=== PATIENT | male | born 1975 | race Caucasian/White ===

== ENCOUNTER 2016-10-26 09:33 | Emergency (ER) | payer MEDICAID, MEDICARE ==
[~2016-10-26] VITALS: Ht 172.7 cm; Wt 93.0 kg
[2016-10-26] MEDS ORDERED: LIDOCAINE/EPI/TETRACAINE TOPICAL GEL 3 ML. TP ONE (10:00)
[2016-10-26] MEDS ORDERED: SMZ/TMP 800/160MG TABLET. PO ONE (10:00)
--- NOTE | 2016-10-26 10:04 | ED.ADGEN ---
Past History Past Medical History: CVA Past Surgical History: Other Alcohol Use: Occasionally Drug Use: Methamphetamine Adult General Chief Complaint Chief Complaint Left elbow infection HPI HPI Patient is a 41-year-old male who presents with cellulitis to his left elbow. Patient reportedly was treated at [facility] approximately 3 weeks ago for a laceration and had sutures placed. Patient did not follow-up to have the sutures removed. There is swelling, redness and bruising surrounding suture site. There is no induration, streaking, or fluctuance. There is no pain on range of motion. Review of Systems Review of Systems ROS as per HPI. Current Medications Current Medications Current Medications Medications (Trade) Dose Ordered Sig/Kristina Start Time Stop Time Status Last Admin Dose Admin Lidocaine/ Epinephrine (Let Topical) 3 ml 1X ONCE 10/26/16 10:00 10/26/16 10:01 10/26/16 09:46 3 ML Trimethoprim/ Sulfamethoxazole (Bactrim Ds) 1 tab 1X ONCE 10/26/16 10:00 10/26/16 10:01 10/26/16 09:46 1 TAB Allergies Allergies Allergies Coded Allergies Type Severity Reaction Last Updated Verified No Known Drug Allergies 01/12/15 No Physical Exam Physical Exam Constitutional: Well developed, well nourished, no acute distress, non-toxic appearance. HENT: Normocephalic, atraumatic, bilateral external ears normal. Extremities: Left elbow, 5 cm patch of swelling erythema over posterior elbow with sutures in place. No induration, streaking or pain to range of motion. Neurologic: Alert and oriented X 3, normal motor function, normal sensory function, no focal deficits noted. Psychologic: Affect normal, judgement, poor. Current Patient Data Vital Signs Vital Signs Date Time Temp Pulse Resp B/P (MAP) Pulse Ox O2 Delivery O2 Flow Rate FiO2 10/26/16 09:53 98.1 89 20 96 EKG EKG [] Radiology/Procedures Radiology/Procedures [] Course & Med Decision Making Course & Med Decision Making Pertinent Labs and Imaging studies reviewed. (See chart for details) [Infected left elbow wound cellulitis without discrete abscess. Sutures removed and antibiotics given. Antibiotics Rx'd from $4 list with arrangements made for patient to pay for abx. PCP referral. Return precautions reviewed. ] Final Impression Final Impression [1. Left elbow cellulitis] Problems: Dragon Disclaimer Dragon Disclaimer This electronic medical record was generated, in whole or in part, using a voice recognition dictation system. ESTELLE ROBERT DO October 26, 2016 10:04
--- NOTE | 2016-10-26 10:57 | RAD ---
Examination: 2 views of the chest history: History of trauma, chest pain Comparison: 12/23/2015 Findings: The cardiomediastinal silhouette grossly appears unremarkable. There is no acute infiltrate or visualized pneumothorax identified. Impression: No acute cardiopulmonary findings.
--- NOTE | 2016-10-26 10:59 | RAD ---
Examination: 3 views of the cervical spine History: History of trauma, neck pain Comparison: None available Findings: The vertebral body heights are maintained. No evidence of listhesis identified. Mild intervertebral disc height loss identified at C5-C6 vertebral levels. Facets are well aligned. No evidence of prevertebral soft tissue swelling identified. The spinolaminar line is maintained. The lateral masses of C1 are aligned with C2 vertebra. The C2 dens appears intact. Impression: 1. Mild degenerative changes cervical spine.
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
[2016-10-26 11:15] VITALS: BP 124/65
== END 2016-10-26 11:49 | disposition home or self-care (01) ==
LOC: ER 09:33
DX: L03.114 Cellulitis of left upper limb (principal); Z86.73 Personal history of transient ischemic attack (TIA), and cerebral infarction without residual deficits; F15.10 Other stimulant abuse, uncomplicated
CPT/HCPCS: 71020; 72040; 72170; 99284-25

== ENCOUNTER 2017-07-21 13:21 | Emergency (ER) | payer MEDICARE ==
[~2017-07-21] VITALS: Ht 172.7 cm; Wt 93.0 kg
[2017-07-21 13:27] VITALS: BP 124/65
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
== END 2017-07-21 14:55 | disposition home or self-care (01) ==
LOC: ER 13:21
DX: T69.8XXA Other specified effects of reduced temperature, initial encounter (principal); F15.10 Other stimulant abuse, uncomplicated; Z59.0 Homelessness; Z86.73 Personal history of transient ischemic attack (TIA), and cerebral infarction without residual deficits
CPT/HCPCS: 99283

== ENCOUNTER 2018-01-10 14:43 | Emergency (ER) | payer MEDICARE ==
[~2018-01-10] VITALS: Ht 180.3 cm; Wt 84.8 kg
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
[2018-01-10 15:12] VITALS: BP 134/53
--- NOTE | 2018-01-10 15:15 | RAD ---
Chest, 2 views, 01/10/2018: HISTORY: Cough, chest pain Comparison is made to a study from 10/26/2016. The heart size is normal. No pulmonary infiltrate is seen. There is no evidence of pleural fluid. A lap band type device is in place related to the proximal aspect of the stomach. IMPRESSION: No acute cardiopulmonary abnormality is detected. Electronically signed by: Anupam Salas MD (01/10/2018 3:11 PM) [facility]
[2018-01-10] MEDS ORDERED: methylPREDNISolone SOD SUCC PF 125 MG/2 ML VIAL. IV ONE (15:20)
[2018-01-10] MEDS ORDERED: IPRATRPIUM/ALBUTEROL 0.5/2.5MG 3 ML NEBU. NEB ONE (15:20)
[2018-01-10] MEDS ORDERED: ASPIRIN 81 MG TAB.CHEW PO ONE (15:20)
[2018-01-10 15:24] LABS: BASO % 1 % (0-3); EOS % 0 % (0-3); HEMOGLOBIN 12.6 g/dL (13.0-17.5); LYMPH # 1.6 x10^3/uL (1.0-4.8); LYMPH % 30 % (24-48); MEAN CORPUSCULAR HEMOGLOBIN 31 pg (25-35); MEAN CORPUSCULAR HGB CONC 34 g/dL (31-37); MEAN CORPUSCULAR VOLUME 90 fL (79-100); MONO # 0.7 x10^3/uL (0.0-1.1); MONO % 13 % (0-9); NEUT # 3.1 x10^3uL (1.8-7.7); NEUT % 56 % (31-73); PLATELET COUNT 226 x10^3/uL (140-400); RED CELL DISTRIBUTION WIDTH 13.5 % (11.5-14.5); WHITE BLOOD COUNT 5.5 x10^3/uL (4.0-11.0)
[2018-01-10 16:05] LABS: ALBUMIN 3.1 g/dL (3.4-5.0); ALBUMIN/GLOBULIN RATIO 0.8 (1.0-1.7); CALCIUM 8.5 mg/dL (8.5-10.1); CREATININE 0.9 mg/dL (0.7-1.3); GFR 91.7; POTASSIUM 3.7 mmol/L (3.5-5.1); TOTAL BILIRUBIN 0.3 mg/dL (0.2-1.0)
[2018-01-10 16:21] LABS: AMPHETAMINE/METHAMPHETAMINE NEG (NEG); BARBITURATES NEG (NEG); BENZODIAZEPINES NEG (NEG); CANNABINOIDS POS (NEG); COCAINE NEG (NEG); METHADONE NEG (NEG); OPIATES NEG (NEG); PHENCYCLIDINE NEG (NEG)
[2018-01-10] MEDS ORDERED: ALBU8.5H8 INH (16:31)
[2018-01-10] MEDS ORDERED: PRED20TA PO (16:31)
[2018-01-10 16:36] LABS: BILIRUBIN,URINE NEG (NEG); CLARITY,URINE HAZY; COLOR,URINE YELLOW; GLUCOSE,URINE NEG (NEG); NITRITE,URINE NEG (NEG); UROBILINOGEN,URINE 1 mg/dL (0.2 mg/dL)
[2018-01-10 16:37] LABS: BACTERIA,URINE 0 /HPF (0-FEW); SQUAMOUS EPITHELIAL CELL,UR FEW /LPF
--- NOTE | 2018-01-11 07:44 | EKG ---
[address] [address] Test Date: 2018-01-10 Test Time: 14:58:02 Pat Name: KIMBERLY WILLAMS Department: Room: Gender: M [employer] Attorney: : 1975 Requested By: SANDY ARGUETA Order Number: [id number] Reading MD: Measurements Intervals Thornton Rate: 88 P: 36 TX: 136 QRS: -33 QRSD: 88 T: 28 QT: 346 QTc: 422 Interpretive Statements SINUS RHYTHM ABNORMAL LEFT AXIS DEVIATION LEFT ANTERIOR FASCICULAR BLOCK ABNORMAL ECG RI6.01 Unconfirmed report No previous ECG available for comparison
== END 2018-01-10 17:00 | disposition home or self-care (01) ==
LOC: ER 14:43
DX: J40 Bronchitis, not specified as acute or chronic (principal); F17.210 Nicotine dependence, cigarettes, uncomplicated; F14.10 Cocaine abuse, uncomplicated; F15.10 Other stimulant abuse, uncomplicated; Z86.73 Personal history of transient ischemic attack (TIA), and cerebral infarction without residual deficits
CPT/HCPCS: 36415; 71046; 80053; 80307; 81001; 82553; 83735; 83880; 84484; 85025; 85610; 93005; 94640; 96374; 99285; J2930; J7620; G0479

== ENCOUNTER 2020-03-31 16:57 | Emergency (ER) | payer MEDICAID, MEDICARE, OTHER ==
[~2020-03-31] VITALS: Ht 180.3 cm; Wt 90.9 kg
[~2020-03-31 16:57] MED LIST: ALBU2.5V8 INH; PRED20TA PO
[2020-03-31 17:15] VITALS: BP 123/92
--- NOTE | 2020-03-31 17:16 | PHYS DOC ---
Past History Past Medical History: Hypertension, Stroke, Other Past Surgical History: No Surgical History Smoking: Cigarettes Alcohol Use: Occasionally Drug Use: Cocaine General Adult EDM: Chief Complaint: INSECT BITE HPI: HPI: Patient is a 44 year old male who presents for evaluation of a large insect bite/abscess to his left upper leg area. Symptoms been rapidly progressing with the past 3 days. There is redness extending below the initial lesion site. He had attempted open the wound at home and then it significantly worsened. Patient has a history of prior skin infections and drug use. He is concerned this may be a spider bite. No active draining at this time. No fevers and c hills Review of Systems: Review of Systems: Constitutional: Denies fever or chills Eyes: Denies change in visual acuity HENT: Denies nasal congestion or sore throat Respiratory: Denies cough or shortness of breath Cardiovascular: Denies chest pain or edema GI: Denies abdominal pain, nausea, vomiting, bloody stools or diarrhea : Denies dysuria Musculoskeletal: Denies back pain or joint pain Integument: Denies rash, large abscess with cellulitis surrounding left upper outer thigh area Neurologic: Denies headache, focal weakness or sensory changes Endocrine: Denies polyuria or polydipsia Lymphatic: Denies swollen glands Psychiatric: Denies depression or anxiety Allergies: Allergies: Allergies Coded Allergies Type Severity Reaction Last Updated Verified No Known Drug Allergies 01/12/15 No Physical Exam: PE: Constitutional: Well developed, well nourished, mild acute distress, non-toxic appearance. [] HENT: Normocephalic, atraumatic, bilateral external ears normal, oropharynx moist, no oral exudates, nose normal. [] Eyes: PERRL, EOMI, conjunctiva normal, no discharge. [] Neck: Normal range of motion, no tenderness, supple, no stridor. [] Cardiovascular:Heart rate regular rhythm slightly tachy, no murmur [] Lungs & Thorax: Bilateral breath sounds clear to auscultation [] Abdomen: Bowel sounds normal, soft, no tenderness, no masses, no pulsatile masses. [] Skin: Warm, dry, no erythema, no rash., 2 cm central abscess with surrounding cellulitis measures approximately 8 cm in diameter [] Back: No tenderness. [] Extremities: tenderness left upper/outer thigh, no cyanosis, ROM intact, no edema. [] Neurologic: Alert and oriented X 3, normal motor function, normal sensory function, no focal deficits noted. [] Psychologic: Affect normal, judgement normal, mood normal. [] EKG: EKG: [] Radiology/Procedures: Radiology/Procedures: [] Heart Score: Risk Factors: Risk Factors: DM, Current or recent (<one month) smoker, HTN, HLP, family history of CAD, obesity. Risk Scores: Score 0 - 3: 2.5% MACE over next 6 weeks - Discharge Home Score 4 - 6: 20.3% MACE over next 6 weeks - Admit for Clinical Observation Score 7 - 10: 72.7% MACE over next 6 weeks - Early Invasive Strategies Course & Med Decision Making: Course & Med Decision Making Pertinent Labs and Imaging studies reviewed. (See chart for details) [] Dragon Disclaimer: Dragon Disclaimer: This electronic medical record was generated, in whole or in part, using a voice recognition dictation system. Departure Departure: Impression: Primary Impression: Left leg cellulitis Additional Impression: Abscess of left leg Disposition: 01 DC HOME SELF CARE/HOMELESS Condition: STABLE Referrals: PCP,NO (PCP) Patient Instructions: Abscess, Care After Additional Instructions: Keep wound clean and dry, take antibiotics as directed. Have your doctor recheck wound of the next 2 days, return if worsen. Replace packing every 2 to 3 days Scripts Doxycycline Hyclate (DOXYCYCLINE HYCLATE) 100 Mg Capsule 1 CAP PO BID for abscess/cellulitis for 7 Days, #14 CAP Prov: MERNA ZEPEDA DO 03/31/20 Clindamycin Hcl (CLINDAMYCIN HCL) 150 Mg Capsule 1 CAP PO QID for abscess/cellulitis for 7 Days, #28 CAP Prov: MERNA ZEPEDA DO 03/31/20 Ibuprofen (IBUPROFEN) 800 Mg Tablet 1 TAB PO TID for pain, #30 TAB Prov: MERNA ZEPEDA DO 03/31/20 Incision and Drainage Incision and Drainage : Site: left upper outer leg Blade Size: 11 I & D Procedure: betadine prep, sterile drapes applied, sterile dressing applied, gauze wick placed Progress about 5 cc of pus obtained, wound probed to break up loculations, half-inch packing gauze placed in wound, wound cleaned with saline under pressure multiple cc, patient given prescription for clindamycin and doxycycline for MRSA coverage MERNA ZEPEDA DO Mar 31, 2020 17:16
[2020-03-31] MEDS ORDERED: IBUP800T19 PO (17:42)
[2020-03-31] MEDS ORDERED: DOXY100C2 PO (17:42)
[2020-03-31] MEDS ORDERED: CLIN150C14 PO (17:42)
[2020-03-31] MEDS ORDERED: LIDOCAINE 2% 20 ML VIAL. IJ ONE (18:00)
[2020-03-31] MEDS ORDERED: CLINDAMYCIN HCL 150 MG CAPSULE PO ONE (18:00)
[2020-03-31] MEDS ORDERED: IBUPROFEN 600 MG TABLET. PO ONE (18:00)
== END 2020-03-31 18:01 | disposition home or self-care (01) ==
LOC: ER 16:57
DX: L02.416 Cutaneous abscess of left lower limb (principal); L03.116 Cellulitis of left lower limb; I10 Essential (primary) hypertension; F17.210 Nicotine dependence, cigarettes, uncomplicated; Z86.73 Personal history of transient ischemic attack (TIA), and cerebral infarction without residual deficits
CPT/HCPCS: 10060; 99283; J2001

== ENCOUNTER 2020-05-10 20:11 | Emergency (ER) | payer MEDICARE ==
[~2020-05-10] VITALS: Ht 180.3 cm; Wt 86.6 kg
[~2020-05-10 20:11] MED LIST changes: +CLIN150C14 PO; +DOXY100C2 PO; +IBUP800T19 PO
[2020-05-10 20:16] VITALS: BP 143/105
[2020-05-10] MEDS ORDERED: MUPIROCIN 2% TOPICAL OINTMENT 22GM TUBE. TP STA (20:57)
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
[2020-05-10] MEDS ORDERED: SMZ/TMP 800/160MG TABLET. PO ONE (21:00)
[2020-05-10] MEDS ORDERED: cefTRIAXone IM 1 GM VIAL IM ONE (21:00)
[2020-05-10] MEDS ORDERED: cefTRIAXone SODIUM 1 GM VIAL ONE (21:09)
[2020-05-10] MEDS ORDERED: SULF1TAB24 PO (21:56)
== END 2020-05-10 22:00 | disposition home or self-care (01) ==
LOC: ER 20:11
DX: L02.811 Cutaneous abscess of head [any part, except face] (principal); R60.0 Localized edema; I10 Essential (primary) hypertension; I25.2 Old myocardial infarction; F17.210 Nicotine dependence, cigarettes, uncomplicated; F14.90 Cocaine use, unspecified, uncomplicated
CPT/HCPCS: 96372; 99283; J0696

== ENCOUNTER 2020-10-28 01:39 | Emergency (ER) | payer MEDICARE ==
[~2020-10-28] VITALS: Ht 180.3 cm; Wt 90.9 kg
[~2020-10-28 01:39] MED LIST changes: -CLIN150C14 PO; +CLIN150C15 PO; +SULF1TAB24 PO
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
[2020-10-28] MEDS ORDERED: CEPH500C PO (02:24)
[2020-10-28] MEDS ORDERED: oxyCODONE/APAP 5/325 1 TAB TABLET PO ONE (03:00)
[2020-10-28] MEDS ORDERED: DIPH,PERTUSS(ACELL),TET VAC/PF 0.5 ML SYRINGE. VAX IM ONE (03:00)
[2020-10-28] MEDS ORDERED: CEPHALEXIN 250 MG CAPSULE PO ONE (03:00)
[2020-10-28 04:30] VITALS: BP 122/88
== END 2020-10-28 03:40 | disposition home or self-care (01) ==
LOC: ER 01:39
DX: L03.116 Cellulitis of left lower limb (principal); L03.115 Cellulitis of right lower limb; I10 Essential (primary) hypertension; F17.210 Nicotine dependence, cigarettes, uncomplicated; Z23 Encounter for immunization; Z59.0 Homelessness
CPT/HCPCS: 90471; 90715; 99283-25

== ENCOUNTER 2021-07-14 23:24 | Emergency (ER) | payer MEDICARE ==
[~2021-07-14] VITALS: Ht 180.3 cm; Wt 90.9 kg
[~2021-07-14 23:24] MED LIST changes: +CEPH500C PO; -CLIN150C15 PO; +CLIN150C16 PO; -DOXY100C2 PO; +DOXY100C3 PO
[2021-07-14 23:36] VITALS: BP 156/105
--- NOTE | 2021-07-14 23:41 | PHYS DOC ---
Past History Past Medical History: Arthritis, Hypertension, Stroke, Other Additional Past Medical Histor: drug abuse Past Medical History Rt. hand / arm, Rt. Leg / foot- contracture sequela of prior CVA Past Surgical History: No Surgical History Smoking: Cigarettes Alcohol Use: Occasionally Drug Use: Cocaine General Adult EDM: Chief Complaint: MULTIPLE COMPLAINTS HPI: HPI: ".. [place] and [place] not get to the halfway in time.. I was in [place] earlier this week.. on a failure to appear on IVET...kaur.. ". " I had been doing some meth today..,." Patient is a 46 year old male who presents with above hx of complaints of chronic right hand pain and right foot pain . Patient's primary concern is that he missed that halfway closing time and " it too fucking cold out their".. Pt. has long history of polysubstance abuse. Patient states he has been off drugs while he was in sn[place] for his violation of IVET. Patient has chronic right hand and right leg contractions and spasms which are sequela of a stroke he had at age 28. Patient advised he had the initial stroke because of drug abuse. Patient denies any recent travel. Denies any specific ill contacts. Does admit to daily meth use if he can get a supply. Patient has used cocaine in the past as a drug of choice. Patient has used other drugs and does smoke tobacco. Patient denies any history of HIV. Has history of hypertension and previous TIAs and CVAs. Patient does have a daughter in the [place] area but currently that relationship has become strained. Has not seen her since [facility]. Review of Systems: Review of Systems: Constitutional: Denies fever or chills Eyes: Denies change in visual acuity HENT: Denies nasal congestion or sore throat Respiratory: Denies cough or shortness of breath Cardiovascular: Denies chest pain or edema GI: Denies abdominal pain, nausea, vomiting, bloody stools or diarrhea : Denies dysuria Musculoskeletal: Complains of contractures and pain in right foot/leg and right arm/ hand.-This is a chronic condition from previous stroke during drug use Integument: Denies rash Neurologic: Denies headache, focal weakness or sensory changes Endocrine: Denies polyuria or polydipsia Lymphatic: Denies swollen glands Psychiatric: Denies depression or anxiety Family History: Family History: Noncontributory to presentation Current Medications: Current Meds: See nursing for home meds Allergies: Allergies: Allergies Coded Allergies Type Severity Reaction Last Updated Verified No Known Drug Allergies 07/14/21 No Physical Exam: PE: Constitutional: , no acute distress, appears under the influence of a narcotic, frequently nodding off. Dirty and unkept HENT: Normocephalic, atraumatic, bilateral external ears normal, oropharynx moist, no oral exudates, nose normal. Poor dentition Eyes: PERRLA, EOMI, conjunctiva normal, no discharge. [] Neck: Normal range of motion, no tenderness, supple, no stridor. [] Cardiovascular:Heart rate regular rhythm, no murmur, PMI to the left Lungs & Thorax: Bilateral breath sounds equal apex with scattered wheezes auscultation [] Abdomen: Bowel sounds normal, soft, no tenderness, no masses, no pulsatile masses. [] Skin: Warm, dry, no erythema, no rash. Poor turgor. Back: No tenderness, no CVA tenderness. [] Extremities: Right hand and right foot tenderness, no cyanosis, no clubbing, ROM intact, no edema. Contractures right hand. Foot drop on right Neurologic: Alert and oriented X 3, moves all extremities on request, does appear to have distal sensory, no focal deficits noted. Obvious right upper extremity and lower extremity deficits from previous CVA Psychologic: Affect flat, judgement normal, mood normal. [] EKG: EKG: [] Radiology/Procedures: Radiology/Procedures: [] Heart Score: C/O Chest Pain: N/A Risk Factors: Risk Factors: DM, Current or recent (<one month) smoker, HTN, HLP, family history of CAD, obesity. Risk Scores: Score 0 - 3: 2.5% MACE over next 6 weeks - Discharge Home Score 4 - 6: 20.3% MACE over next 6 weeks - Admit for Clinical Observation Score 7 - 10: 72.7% MACE over next 6 weeks - Early Invasive Strategies Course & Med Decision Making: Course & Med Decision Making Pertinent Labs and Imaging studies reviewed. (See chart for details) Patient's Covid was negative. Will be referred to halfway for follow-up tonight. Patient consider RSI for crisis and possible eventual referred to drug rehab if he desires. Patient currently does not desire a drug rehab program. Impression: 1. Right arm hand and right leg foot pain-chronic 2. History of polysubstance abuse 3. Requesting halfway [] Dragon Disclaimer: Dragon Disclaimer: This electronic medical record was generated, in whole or in part, using a voice recognition dictation system. Departure Departure: Referrals: PCP,NO (PCP) Stew Disclaimer This chart was dictated in whole or in part using Voice Recognition software in a busy, high-work load, and often noisy Emergency Department environment. It may contain unintended and wholly unrecognized errors or omissions. SIMONE ELLIOTT MD Jul 14, 2021 23:41
[2021-07-15 00:05] LABS: INFLUENZA A PATIENT NEGATIVE (NEGATIVE); INFLUENZA B PATIENT NEGATIVE (NEGATIVE)
== END 2021-07-15 00:37 | disposition home or self-care (01) ==
LOC: ER 23:24
DX: G89.29 Other chronic pain (principal); M79.641 Pain in right hand; M79.671 Pain in right foot; F19.10 Other psychoactive substance abuse, uncomplicated; M19.90 Unspecified osteoarthritis, unspecified site; I10 Essential (primary) hypertension; F17.210 Nicotine dependence, cigarettes, uncomplicated; Z86.73 Personal history of transient ischemic attack (TIA), and cerebral infarction without residual deficits; Z20.822 Contact with and (suspected) exposure to COVID-19
CPT/HCPCS: 87428; 99283